=== PATIENT | male | born 1980 | race American Indian/Alaskan Native ===

== ENCOUNTER 2023-04-21 17:08 | Emergency (ER) | payer MEDICAID ==
[2023-04-21] MEDS ORDERED: 50% Dextrose in Water 50 ML Syringe IVPUSH PRN (17:21)
[2023-04-21] MEDS ORDERED: Insulin Regular, Human 100 Units/ML 3 ML Vial SUBCUT ONE ×2 (17:21→18:11)
[2023-04-21] MEDS ORDERED: Glucagon,Human Recombinant 1 MG Vial IM PRN (17:21)
== END 2023-04-21 18:49 | disposition home or self-care (01) ==
LOC: DL.ED 17:08
DX: E11.65 Type 2 diabetes mellitus with hyperglycemia (principal); Z88.0 Allergy status to penicillin; Z79.84 Long term (current) use of oral hypoglycemic drugs
CPT/HCPCS: 82947; 99283; 99284; J1815

== ENCOUNTER 2023-07-07 22:11 | Emergency (ER) | payer MEDICAID ==
[2023-07-07 23:00] LABS: APPEARANCE,URINE CLEAR (CLEAR); BILIRUBIN,URINE NEGATIVE (NEGATIVE); COLOR,URINE YELLOW (YELLOW); GLUCOSE,URINE 250 (NEGATIVE); KETONES,URINE NEGATIVE (NEGATIVE); LEUKOCYTE ESTERASE,URINE NEGATIVE (NEGATIVE); NITRITE,URINE NEGATIVE (NEGATIVE); OCCULT BLOOD,URINE NEGATIVE (NEGATIVE); PROTEIN,URINE TRACE (NEGATIVE)
[2023-07-07 23:00] LABS: BASOPHILS PERCENT AUTO 0.6 % (0.0-1.0); EOSINOPHILS PERCENT AUTO 1.4 % (1.0-3.0); HEMATOCRIT 47.9 % (40.0-54.0); HEMOGLOBIN 16.3 g/dL (14.0-18.0); LYMPHOCYTES PERCENT AUTO 32.7 % (20.5-50.1); MEAN CORPUSCULAR HEMOGLOBIN 28.6 pg (27.0-34.0); MONOCYTES PERCENT AUTO 8.8 % (2-8); NEUTROPHILS PERCENT AUTO 56.5 % (42.2-75.2); PLATELET COUNT,PLT 318 10^3/uL (150-450); WHITE BLOOD CELL COUNT,WBC 7.9 10^3/uL (5.0-10.0)
[2023-07-07 23:07] LABS: WBC,URINE 0-5 /HPF (0-5/HPF)
[2023-07-07 23:08] LABS: AMORPHOUS SEDIMENT,URINE RARE /HPF (NOT SEEN); BACTERIA,URINE RARE /HPF (0-FEW/HPF); EPITHELIAL CELLS,URINE FEW /HPF (NOT SEEN); MUCUS,URINE RARE /LPF (NOT SEEN); RBC,URINE 0-5 /HPF (0-5)
[2023-07-07 23:21] LABS: A/G RATIO 0.84; ALANINE AMINOTRANSFERASE,ALT 20 U/L (16-63); ALBUMIN 3.2 g/dL (3.4-5.0); ALKALINE PHOSPHATASE 105 U/L (46-116); ANION GAP 11.5 mEq/L (7-13); ASPARTATE AMNIOTRANSFERASE,AST 9 U/L (15-37); BILIRUBIN TOTAL 0.5 mg/dL (0.2-1.0); BLOOD UREA NITROGEN,BUN 20 mg/dL (7-18); BUN/CREATININE RATIO 20.4 (No establ ref range); CALCIUM 8.2 mg/dL (8.5-10.1); CARBON DIOXIDE,CO2 26 mmol/L (21-32); CHLORIDE,CL 104 mmol/L (98-107); CREATININE 0.98 mg/dL (0.70-1.30); EST CRCL DRUG DOSING (CG) 102.42 mL/min; ESTIMATED GFR 99 mL/min (>=60); GLUCOSE RANDOM 245 mg/dL (70-99); LIPASE 27 U/L (16-77); POTASSIUM,K 3.5 mmol/L (3.5-5.1); SODIUM,NA 138 mmol/L (136-145)
[2023-07-07] MEDS: Baclofen 10 MG Tab ONE (23:39)
== END 2023-07-07 23:38 | disposition home or self-care (01) ==
LOC: DL.ED 22:11
DX: M62.830 Muscle spasm of back (principal); E11.9 Type 2 diabetes mellitus without complications; Z88.0 Allergy status to penicillin; Z79.84 Long term (current) use of oral hypoglycemic drugs; Z79.899 Other long term (current) drug therapy
CPT/HCPCS: 36415; 80053; 81001; 83690; 84484; 85025; 99283

== ENCOUNTER 2023-08-11 16:20 | Emergency (ER) | payer SELFPAY ==
[2023-08-11] MEDS: Lidocaine 1% 5 ML VIAL INJECT ONE (16:53)
== END 2023-08-11 17:30 | disposition home or self-care (01) ==
LOC: DL.ED 16:20
DX: S61.313A Laceration without foreign body of left middle finger with damage to nail, initial encounter (principal); E11.9 Type 2 diabetes mellitus without complications; Z79.84 Long term (current) use of oral hypoglycemic drugs; Z79.899 Other long term (current) drug therapy; Z88.0 Allergy status to penicillin; W26.0XXA Contact with knife, initial encounter
CPT/HCPCS: 12001; 99282; 99283; J3490

== ENCOUNTER 2023-11-19 10:08 | Emergency (ER) | payer SELFPAY | END 2023-11-19 11:08 | disposition home or self-care (01) | LOC: DL.ED 10:08 | DX: S59.901A Unspecified injury of right elbow, initial encounter (principal); E11.9 Type 2 diabetes mellitus without complications; Z88.0 Allergy status to penicillin; Z79.899 Other long term (current) drug therapy; Z79.4 Long term (current) use of insulin; W11.XXXA Fall on and from ladder, initial encounter; Y93.89 Activity, other specified | CPT/HCPCS: 73080-RT; 99283 ==

== ENCOUNTER 2023-12-29 14:47 | Emergency (ER) | payer SELFPAY ==
[2023-12-29] MEDS: Ketorolac 30 MG/ML SDV IM ONE (15:29)
== END 2023-12-29 15:34 | disposition home or self-care (01) ==
LOC: DL.ED 14:47
DX: L03.116 Cellulitis of left lower limb (principal); E11.9 Type 2 diabetes mellitus without complications; Z88.0 Allergy status to penicillin; Z79.84 Long term (current) use of oral hypoglycemic drugs; Z79.899 Other long term (current) drug therapy
CPT/HCPCS: 96372; 99283; J1885

== ENCOUNTER 2024-01-04 00:58 | Emergency (ER) | payer SELFPAY ==
[2024-01-04 01:38] LABS: HEMATOCRIT 49.5 % (40.0-54.0); HEMOGLOBIN 17.3 g/dL (14.0-18.0); MEAN CORPUSCULAR HEMOGLOBIN 30.8 pg (27.0-34.0); MEAN CORPUSCULAR HGB CONC 34.9 g/dL (33.0-35.0); MEAN CORPUSCULAR VOLUME 88.1 fL (80-100); PLATELET COUNT,PLT 294 10^3/uL (150-450); RED BLOOD CELL COUNT 5.62 10^6/uL (4.6-6.2); WHITE BLOOD CELL COUNT,WBC 7.2 10^3/uL (5.0-10.0)
[2024-01-04 01:41] LABS: BASOPHILS PERCENT AUTO 0.6 % (0.0-1.0); EOSINOPHILS PERCENT AUTO 1.5 % (1.0-3.0); LYMPHOCYTES PERCENT AUTO 34.5 % (20.5-50.1); MONOCYTES PERCENT AUTO 16.7 % (2-8); NEUTROPHILS PERCENT AUTO 46.7 % (42.2-75.2)
[2024-01-04 01:55] LABS: ALANINE AMINOTRANSFERASE,ALT 25 U/L (16-63); ALBUMIN 3.3 g/dL (3.4-5.0); ALKALINE PHOSPHATASE 91 U/L (46-116); ANION GAP 18.8 mEq/L (7-13); ASPARTATE AMNIOTRANSFERASE,AST 15 U/L (15-37); BILIRUBIN TOTAL 0.4 mg/dL (0.2-1.0); BLOOD UREA NITROGEN,BUN 19 mg/dL (7-18); BUN/CREATININE RATIO 18.3 (No establ ref range); CALCIUM 8.9 mg/dL (8.5-10.1); CARBON DIOXIDE,CO2 23 mmol/L (21-32); CHLORIDE,CL 101 mmol/L (98-107); CREATININE 1.04 mg/dL (0.70-1.30); ETHANOL BLOOD MEDICAL 162 mg/dL (0); GLUCOSE RANDOM 131 mg/dL (70-99); MAGNESIUM 1.6 mg/dL (1.8-2.4); POTASSIUM,K 2.8 mmol/L (3.5-5.1); SODIUM,NA 140 mmol/L (136-145)
[2024-01-04] MEDS: Sodium Chloride 0.9% 1,000 ML IV ONE ×2 (02:00→03:05)
[2024-01-04] MEDS: Diphtheria,Pertussis(Acell),Tetanus Vaccine 0.5 ML Syringe IM ONE (02:05)
[2024-01-04 02:12] LABS: A/G RATIO 0.89; ESTIMATED GFR 93 mL/min (>=60)
[2024-01-04 02:22] LABS: EOSINOPHILS PERCENT MAN 1 % (1-3); LYMPHOCYTES PERCENT MAN 35 % (20-50); MONOCYTES PERCENT MAN 9 % (2-8); SEG NEUTROPHILS PERCENT MAN 55 % (42-75)
[2024-01-04 02:27] LABS: APPEARANCE,URINE CLEAR (CLEAR); BILIRUBIN,URINE NEGATIVE (NEGATIVE); COLOR,URINE YELLOW (YELLOW); GLUCOSE,URINE NEGATIVE (NEGATIVE); KETONES,URINE NEGATIVE (NEGATIVE); LEUKOCYTE ESTERASE,URINE NEGATIVE (NEGATIVE); NITRITE,URINE NEGATIVE (NEGATIVE); OCCULT BLOOD,URINE NEGATIVE (NEGATIVE); PH,URINE 5.5 (5.0-9.0); PROTEIN,URINE NEGATIVE (NEGATIVE); UROBILINOGEN,URINE 0.2 mg/dL (0.2-1.0)
[2024-01-04 02:30] LABS: AMPHETAMINES,URINE POSITIVE (NEGATIVE); BARBITURATES,URINE NEGATIVE (NEGATIVE); BENZODIAZEPINE,URINE NEGATIVE (NEGATIVE); MDMA (ECSTASY), URINE NEGATIVE (NEGATIVE); METHADONE,URINE NEGATIVE (NEGATIVE); METHAMPHETAMINES,URINE POSITIVE (NEGATIVE); OPIATES,URINE NEGATIVE (NEGATIVE); OXYCODONE,URINE NEGATIVE (NEGATIVE); PHENCYCLIDINE,URINE NEGATIVE (NEGATIVE); TCA,URINE NEGATIVE (NEGATIVE)
[2024-01-04] MEDS: Magnesium Sulfate/Water 2 GM in Premix Bag 1 BAG IV ONE (03:06)
[2024-01-04] MEDS: Potassium Chloride 20 MEQ in Premix Bag 1 BAG IV ONE ×2 (03:15→05:15)
[2024-01-04] MEDS: Potassium Chloride 10 MEQ Tab.ER ONE (07:33)
[2024-01-04] MEDS: Potassium Chloride 10 MEQ Tab.ER PO ONE (07:37)
[2024-01-04 08:21] LABS: ANION GAP 10.2 mEq/L (7-13); CREATININE 0.89 mg/dL (0.70-1.30); EST CRCL DRUG DOSING (CG) 109.23 mL/min; POTASSIUM,K 3.2 mmol/L (3.5-5.1)
== END 2024-01-04 08:08 | disposition home or self-care (01) ==
LOC: DL.ED 00:58
DX: S09.90XA Unspecified injury of head, initial encounter (principal); S00.03XA Contusion of scalp, initial encounter; F10.129 Alcohol abuse with intoxication, unspecified; E87.6 Hypokalemia; F15.10 Other stimulant abuse, uncomplicated; E83.42 Hypomagnesemia; E86.9 Volume depletion, unspecified; F12.10 Cannabis abuse, uncomplicated; E11.9 Type 2 diabetes mellitus without complications; F17.200 Nicotine dependence, unspecified, uncomplicated; Z79.84 Long term (current) use of oral hypoglycemic drugs; Z79.899 Other long term (current) drug therapy; Z88.0 Allergy status to penicillin; Y00.XXXA Assault by blunt object, initial encounter
CPT/HCPCS: 12001; 36415; 70450; 80048; 80053; 80305-QW; 80307; 81003; 83735; 84484; 85025; 90471; 90715; 93005; 93010; 96361; 96365; 96366; 96367; 99284; 99284-25; A9270-GY; J3475; J3480; J7030

== ENCOUNTER 2024-01-06 12:43 | Emergency (ER) | payer SELFPAY ==
[2024-01-06 13:13] LABS: BASOPHILS PERCENT AUTO 0.6 % (0.0-1.0); HEMATOCRIT 48.5 % (40.0-54.0); HEMOGLOBIN 16.5 g/dL (14.0-18.0); LYMPHOCYTES PERCENT AUTO 31.4 % (20.5-50.1); MEAN CORPUSCULAR HEMOGLOBIN 30.6 pg (27.0-34.0); MEAN CORPUSCULAR VOLUME 89.8 fL (80-100); MONOCYTES PERCENT AUTO 10.4 % (2-8); NEUTROPHILS PERCENT AUTO 56.6 % (42.2-75.2); PLATELET COUNT,PLT 295 10^3/uL (150-450); WHITE BLOOD CELL COUNT,WBC 4.9 10^3/uL (5.0-10.0)
[2024-01-06 13:34] LABS: ALBUMIN 3.2 g/dL (3.4-5.0); ANION GAP 11.9 mEq/L (7-13); BILIRUBIN TOTAL 0.2 mg/dL (0.2-1.0); BUN/CREATININE RATIO 6.9 (No establ ref range); CALCIUM 8.3 mg/dL (8.5-10.1); CREATININE 1.01 mg/dL (0.70-1.30); EST CRCL DRUG DOSING (CG) 99.38 mL/min; MAGNESIUM 1.7 mg/dL (1.8-2.4); POTASSIUM,K 3.9 mmol/L (3.5-5.1); PROTEIN TOTAL,TP 6.8 g/dL (6.4-8.2)
[2024-01-06 13:38] LABS: A/G RATIO 0.89
[2024-01-06] MEDS ORDERED: Sodium Chloride 0.9% 10 ML Syringe FLUSH PRN (13:49)
[2024-01-06] MEDS ORDERED: Sodium Chloride 0.9% 1,000 ML IV SCH (14:00)
[2024-01-06] MEDS: Thiamine 100 MG in Sodium Chloride 0.9% 100 ML IV ONE (14:30)
== END 2024-01-06 14:44 | disposition home or self-care (01) ==
LOC: DL.ED 12:43
DX: S00.01XA Abrasion of scalp, initial encounter (principal); R42 Dizziness and giddiness; G44.309 Post-traumatic headache, unspecified, not intractable; F10.929 Alcohol use, unspecified with intoxication, unspecified; E11.9 Type 2 diabetes mellitus without complications; Z79.84 Long term (current) use of oral hypoglycemic drugs; Z88.1 Allergy status to other antibiotic agents; Z88.0 Allergy status to penicillin; Y07.040 Female partner, current, perpetrator of maltreatment and neglect; Y04.2XXA Assault by strike against or bumped into by another person, initial encounter
CPT/HCPCS: 36415; 70450; 70486; 73080-LT; 80053; 80307; 83735; 85025; 99285

== ENCOUNTER 2024-01-09 14:17 | Emergency (ER) | payer SELFPAY | END 2024-01-09 14:50 | disposition home or self-care (01) | LOC: DL.ED 14:17 | DX: F10.90 Alcohol use, unspecified, uncomplicated (principal); E11.9 Type 2 diabetes mellitus without complications; F17.210 Nicotine dependence, cigarettes, uncomplicated; Z88.0 Allergy status to penicillin; Z79.84 Long term (current) use of oral hypoglycemic drugs; Z79.899 Other long term (current) drug therapy | CPT/HCPCS: 99283; 99284 ==

== ENCOUNTER 2024-02-14 09:26 | Emergency (ER) | payer SELFPAY | END 2024-02-14 11:09 | disposition left against medical advice (07) | LOC: DL.ED 09:26 | DX: Z53.21 Procedure and treatment not carried out due to patient leaving prior to being seen by health care provider (principal) ==

== ENCOUNTER 2024-02-14 20:56 | Emergency (ER) | payer SELFPAY | END 2024-02-14 21:38 | disposition home or self-care (01) | LOC: DL.ED 20:56 | DX: S90.112A Contusion of left great toe without damage to nail, initial encounter (principal); S80.812A Abrasion, left lower leg, initial encounter; E11.9 Type 2 diabetes mellitus without complications; Z79.4 Long term (current) use of insulin; Z79.84 Long term (current) use of oral hypoglycemic drugs; Z79.899 Other long term (current) drug therapy; Z88.0 Allergy status to penicillin; X58.XXXA Exposure to other specified factors, initial encounter | CPT/HCPCS: 73600-LT; 73620-LT; 99283 ==

== ENCOUNTER 2024-02-17 03:44 | Emergency (ER) | payer SELFPAY ==
[2024-02-17] MEDS: Clindamycin in 0.9 % Sod Chlor 900 MG in Premix Bag 1 BAG IV ONE (04:14)
[2024-02-17 04:15] LABS: HEMATOCRIT 50.6 % (40.0-54.0); HEMOGLOBIN 17.4 g/dL (14.0-18.0); MEAN CORPUSCULAR HEMOGLOBIN 31.4 pg (27.0-34.0); MEAN CORPUSCULAR HGB CONC 34.4 g/dL (33.0-35.0); MEAN CORPUSCULAR VOLUME 91.2 fL (80-100); PLATELET COUNT,PLT 296 10^3/uL (150-450); RED BLOOD CELL COUNT 5.55 10^6/uL (4.6-6.2)
[2024-02-17 04:29] LABS: BASOPHILS PERCENT AUTO 0.4 % (0.0-1.0); EOSINOPHILS PERCENT AUTO 1.1 % (1.0-3.0); LYMPHOCYTES PERCENT AUTO 31.8 % (20.5-50.1); MONOCYTES PERCENT AUTO 10.3 % (2-8); NEUTROPHILS PERCENT AUTO 56.4 % (42.2-75.2)
[2024-02-17 04:49] LABS: APPEARANCE,URINE CLEAR (CLEAR); BILIRUBIN,URINE NEGATIVE (NEGATIVE); GLUCOSE,URINE 500 (NEGATIVE); KETONES,URINE NEGATIVE (NEGATIVE); LEUKOCYTE ESTERASE,URINE NEGATIVE (NEGATIVE); NITRITE,URINE NEGATIVE (NEGATIVE); OCCULT BLOOD,URINE NEGATIVE (NEGATIVE); PROTEIN,URINE NEGATIVE (NEGATIVE); UROBILINOGEN,URINE 0.2 mg/dL (0.2-1.0)
[2024-02-17] MEDS: MVI, Adult with Vitamin K 10 ML, Folic Acid 1 MG, Thiamine 100 MG in Lactated Ringers 1... IV ONE (04:50)
[2024-02-17 04:52] LABS: AMPHETAMINES,URINE NEGATIVE (NEGATIVE); BARBITURATES,URINE NEGATIVE (NEGATIVE); BENZODIAZEPINE,URINE NEGATIVE (NEGATIVE); COLOR,URINE LIGHT YELLOW (YELLOW); MDMA (ECSTASY), URINE NEGATIVE (NEGATIVE); METHADONE,URINE NEGATIVE (NEGATIVE); METHAMPHETAMINES,URINE NEGATIVE (NEGATIVE); OPIATES,URINE NEGATIVE (NEGATIVE); OXYCODONE,URINE NEGATIVE (NEGATIVE); PHENCYCLIDINE,URINE NEGATIVE (NEGATIVE); TCA,URINE NEGATIVE (NEGATIVE)
[2024-02-17 05:01] LABS: LACTIC ACID 2.5 mmol/L (0.4-2.0)
[2024-02-17 05:02] LABS: ALANINE AMINOTRANSFERASE,ALT 19 U/L (16-63); ALBUMIN 3.1 g/dL (3.4-5.0); ALKALINE PHOSPHATASE 130 U/L (46-116); ANION GAP 17.7 mEq/L (7-13); ASPARTATE AMNIOTRANSFERASE,AST 10 U/L (15-37); BILIRUBIN TOTAL 0.2 mg/dL (0.2-1.0); BLOOD UREA NITROGEN,BUN 11 mg/dL (7-18); BUN/CREATININE RATIO 13.6 (No establ ref range); CALCIUM 8.6 mg/dL (8.5-10.1); CARBON DIOXIDE,CO2 21 mmol/L (21-32); CHLORIDE,CL 105 mmol/L (98-107); CREATININE 0.81 mg/dL (0.70-1.30); ETHANOL BLOOD MEDICAL 246 mg/dL (0); GLUCOSE RANDOM 268 mg/dL (70-99); POTASSIUM,K 3.7 mmol/L (3.5-5.1); PROTEIN TOTAL,TP 7.6 g/dL (6.4-8.2); SODIUM,NA 140 mmol/L (136-145); TSH ULTRASENSITIVE 1.52 uIU/mL (0.36-3.74)
[2024-02-17 05:03] LABS: A/G RATIO 0.69; ACETAMINOPHEN 0 ug/mL (10-30 (Therapeutic)); ESTIMATED GFR 114 mL/min (>=60)
[2024-02-17 05:17] LABS: EOSINOPHILS PERCENT MAN 1 % (1-3); LYMPHOCYTES PERCENT MAN 24 % (20-50); MONOCYTES PERCENT MAN 9 % (2-8); SEG NEUTROPHILS PERCENT MAN 66 % (42-75)
[2024-02-17] MEDS ORDERED: Sodium Chloride 0.9% 1,000 ML IV ONE (05:45)
[2024-02-17 12:55] LABS: CORONAVIRUS COVID-19 NAA NEGATIVE (NEGATIVE); INFLUENZA A NAA NEGATIVE (NEGATIVE); INFLUENZA B NAA NEGATIVE (NEGATIVE)
== END 2024-02-17 13:30 ==
LOC: DL.ED 03:44
DX: T65.92XA Toxic effect of unspecified substance, intentional self-harm, initial encounter (principal); R45.851 Suicidal ideations; L03.032 Cellulitis of left toe; E86.0 Dehydration; F12.10 Cannabis abuse, uncomplicated; F32.A Depression, unspecified; F10.920 Alcohol use, unspecified with intoxication, uncomplicated; E11.9 Type 2 diabetes mellitus without complications; Z88.0 Allergy status to penicillin; Z79.84 Long term (current) use of oral hypoglycemic drugs; Z79.4 Long term (current) use of insulin; Z79.899 Other long term (current) drug therapy
CPT/HCPCS: 0240U; 36415; 73630; 80053; 80143; 80179; 80305; 80307; 81003; 82947; 83605; 84443; 85025; 96365; 99285; J3490

== ENCOUNTER 2024-03-27 14:14 | Emergency (ER) | payer SELFPAY | END 2024-03-27 15:15 | disposition home or self-care (01) | LOC: DL.ED 14:14 | DX: S51.832A Puncture wound without foreign body of left forearm, initial encounter (principal); E11.9 Type 2 diabetes mellitus without complications; Z79.899 Other long term (current) drug therapy; Z79.84 Long term (current) use of oral hypoglycemic drugs; Z79.4 Long term (current) use of insulin; Z88.0 Allergy status to penicillin; W17.89XA Other fall from one level to another, initial encounter | CPT/HCPCS: 73090-LT; 99283 ==

== ENCOUNTER 2024-10-07 10:16 | Emergency (ER) | payer MEDICAID ==
[2024-10-07] MEDS: Take Home: Lidocaine 2% Viscous Solution 15 ML UD, 2 Cup Pack PO ONE (10:45)
[2024-10-07] MEDS: Take Home: Clindamycin HCl 150 MG, 12 Cap Pack PO ONE (10:46)
== END 2024-10-07 10:50 | disposition home or self-care (01) ==
LOC: DL.ED 10:16
DX: K04.7 Periapical abscess without sinus (principal); E11.9 Type 2 diabetes mellitus without complications; F17.210 Nicotine dependence, cigarettes, uncomplicated; Z79.899 Other long term (current) drug therapy; Z79.84 Long term (current) use of oral hypoglycemic drugs; Z88.0 Allergy status to penicillin
CPT/HCPCS: 99282; A9270

== ENCOUNTER 2024-10-19 13:04 | Emergency (ER) | payer MEDICAID | END 2024-10-19 13:46 | disposition home or self-care (01) | LOC: DL.ED 13:04 | DX: B34.9 Viral infection, unspecified (principal); E11.9 Type 2 diabetes mellitus without complications; Z88.0 Allergy status to penicillin; Z79.84 Long term (current) use of oral hypoglycemic drugs; Z79.4 Long term (current) use of insulin | CPT/HCPCS: 87081; 87430; 99283 ==

== ENCOUNTER 2024-11-11 00:54 | Emergency (ER) | payer MEDICAID ==
[2024-11-11] MEDS ORDERED: Sodium Chloride 0.9% 10 ML Syringe FLUSH PRN (01:05)
[2024-11-11 01:21] LABS: BASOPHILS PERCENT AUTO 0.5 % (0.0-1.0); EOSINOPHILS PERCENT AUTO 0.8 % (1.0-3.0); HEMATOCRIT 47.4 % (40.0-54.0); HEMOGLOBIN 16.3 g/dL (14.0-18.0); LYMPHOCYTES PERCENT AUTO 32.1 % (20.5-50.1); MEAN CORPUSCULAR HEMOGLOBIN 29.2 pg (27.0-34.0); MEAN CORPUSCULAR HGB CONC 34.4 g/dL (33.0-35.0); MEAN CORPUSCULAR VOLUME 84.8 fL (80-100); MONOCYTES PERCENT AUTO 8.8 % (2-8); NEUTROPHILS PERCENT AUTO 57.8 % (42.2-75.2); PLATELET COUNT,PLT 287 10^3/uL (150-450); RED BLOOD CELL COUNT 5.59 10^6/uL (4.6-6.2); WHITE BLOOD CELL COUNT,WBC 9.2 10^3/uL (5.0-10.0)
[2024-11-11] MEDS: Aspirin 81 MG Tab.Chew PO ONE (01:22)
[2024-11-11 01:39] LABS: INR 0.9 (0.9-1.2); PROTHROMBIN TIME 9.7 SEC (9.0-12.0); PTT,PARTIAL THROMBOPLSTIN TIME 26.5 SEC (22.0-34.0)
[2024-11-11 01:40] LABS: HEMOGLOBIN A1C 10.6 % (<5.7)
[2024-11-11 01:53] LABS: ESTIMATED GFR 96 mL/min (>=60)
[2024-11-11 01:54] LABS: CARBON DIOXIDE,CO2 26 mmol/L (24-29); CHLORIDE,CL 104 mmol/L (98-109); SODIUM,NA 140 mmol/L (138-146)
[2024-11-11 01:55] LABS: BLOOD UREA NITROGEN,BUN 12 mg/dL (8-26); GLUCOSE RANDOM 252 mg/dL (70-105)
[2024-11-11 02:02] LABS: B-TYPE NATRIURETIC PEPTIDE,BNP < 5 pg/ml (0-100)
[2024-11-11] MEDS: Potassium Chloride 10 MEQ Tab.ER PO ONE (02:12)
[2024-11-11 02:22] LABS: A/G RATIO 1.1; ALANINE AMINOTRANSFERASE,ALT 18 U/L (16-63); ALBUMIN 3.6 g/dL (3.4-5.0); ALKALINE PHOSPHATASE 109 U/L (46-116); ASPARTATE AMNIOTRANSFERASE,AST 12 U/L (15-37); BILIRUBIN TOTAL 0.6 mg/dL (0.2-1.0); MAGNESIUM 1.9 mg/dL (1.8-2.4); TSH ULTRASENSITIVE 4.53 uIU/mL (0.36-3.74)
[2024-11-11 02:48] LABS: APPEARANCE,URINE CLEAR (CLEAR); BILIRUBIN,URINE NEGATIVE (NEGATIVE); COLOR,URINE YELLOW (YELLOW); GLUCOSE,URINE 500 (NEGATIVE); KETONES,URINE NEGATIVE (NEGATIVE); LEUKOCYTE ESTERASE,URINE NEGATIVE (NEGATIVE); NITRITE,URINE NEGATIVE (NEGATIVE); OCCULT BLOOD,URINE NEGATIVE (NEGATIVE); PROTEIN,URINE NEGATIVE (NEGATIVE)
[2024-11-11 02:55] LABS: CHOLESTEROL HDL 48 mg/dL (40-59); CHOLESTEROL LDL CALCULATED 58 mg/dL (0-100); CHOLESTEROL TOTAL 134 mg/dL (0-199); TRIGLYCERIDES 141 mg/dL (0-149)
[2024-11-11 06:34] LABS: CALCIUM 1.07
== END 2024-11-11 03:00 | disposition home or self-care (01) ==
LOC: DL.ED 00:54
DX: R07.89 Other chest pain (principal); E11.9 Type 2 diabetes mellitus without complications; E87.6 Hypokalemia; F10.20 Alcohol dependence, uncomplicated; I10 Essential (primary) hypertension; F17.210 Nicotine dependence, cigarettes, uncomplicated; R94.6 Abnormal results of thyroid function studies; E66.9 Obesity, unspecified; Z68.30 Body mass index [BMI] 30.0-30.9, adult; Z88.0 Allergy status to penicillin; Z79.4 Long term (current) use of insulin; Z79.84 Long term (current) use of oral hypoglycemic drugs; Z79.899 Other long term (current) drug therapy; Y90.9 Presence of alcohol in blood, level not specified
CPT/HCPCS: 36415; 71045; 80053; 80061; 81003; 83036; 83735; 83880; 84443; 84484; 85025; 85610; 85730; 93005; 93010; 99284; 99285; A9270-GY

== ENCOUNTER 2024-11-19 10:20 | Emergency (ER) | payer SELFPAY | END 2024-11-19 10:46 | disposition home or self-care (01) | LOC: DL.ED 10:20 | DX: S20.312A Abrasion of left front wall of thorax, initial encounter (principal); E11.9 Type 2 diabetes mellitus without complications; Z88.0 Allergy status to penicillin; Z79.4 Long term (current) use of insulin; Z79.84 Long term (current) use of oral hypoglycemic drugs; Z79.899 Other long term (current) drug therapy; W57.XXXA Bitten or stung by nonvenomous insect and other nonvenomous arthropods, initial encounter | CPT/HCPCS: 99283 ==

== ENCOUNTER 2024-12-02 11:18 | Emergency (ER) | payer SELFPAY | END 2024-12-02 11:46 | disposition home or self-care (01) | LOC: DL.ED 11:18 | DX: J39.8 Other specified diseases of upper respiratory tract (principal); B97.89 Other viral agents as the cause of diseases classified elsewhere; I10 Essential (primary) hypertension; E11.9 Type 2 diabetes mellitus without complications; F17.200 Nicotine dependence, unspecified, uncomplicated; Z88.0 Allergy status to penicillin; Z79.4 Long term (current) use of insulin; Z79.84 Long term (current) use of oral hypoglycemic drugs; Z79.899 Other long term (current) drug therapy | CPT/HCPCS: 99283; A9270 ==